=== PATIENT | female | born 1985 | race Caucasian/White ===

== ENCOUNTER 2017-11-04 23:30 | Emergency (ER) | payer MEDICAID ==
[~2017-11-04] VITALS: Ht 157.5 cm; Wt 57.9 kg
[~2017-11-04 23:30] MED LIST: METO10TA3 PO; POTA20TA19 PO; ZOF4T PO
[2017-11-05] MEDS ORDERED: ondansetron 4mg rapidly disintigrating tab PO ONE (01:35)
[2017-11-05] MEDS ORDERED: PSEU120T55 PO (01:37)
[2017-11-05] MEDS ORDERED: ONDA8TAB9 PO (01:37)
[2017-11-05] MEDS ORDERED: AZIT-55 PO (01:37)
[2017-11-05] MEDS ORDERED: GUAI473S11 PO (01:37)
[2017-11-05] MEDS ORDERED: IBUP-1984 PO (01:37)
[2017-11-05 01:54] VITALS: BP 143/89
== END 2017-11-05 01:54 | disposition home or self-care (01) ==
LOC: ER 23:32
DX: J06.9 Acute upper respiratory infection, unspecified (principal); J02.9 Acute pharyngitis, unspecified; G43.909 Migraine, unspecified, not intractable, without status migrainosus; Z91.09 Other allergy status, other than to drugs and biological substances; Z79.899 Other long term (current) drug therapy
CPT/HCPCS: 99283

== ENCOUNTER 2022-08-23 08:38 | Emergency (ER) | payer MEDICAID ==
[~2022-08-23] VITALS: Ht 157.5 cm; Wt 68.0 kg
[~2022-08-23 08:38] MED LIST changes: +ONDA8TAB9 PO; +POTA-207 PO; -POTA20TA19 PO; +PSEU120T55 PO
[2022-08-23] MEDS ORDERED: ketorolac trometh. 30mg/ml inj. IV ONE (09:40)
[2022-08-23] MEDS ORDERED: normal saline 1000ml 1,000 ML IV ONE (09:40)
[2022-08-23] MEDS ORDERED: proCHLORperazine 10 MG/2 ml inj IV ONE (09:40)
[2022-08-23] MEDS ORDERED: diphenhydrAMINE 50 mg/ml inj IV ONE (09:40)
[2022-08-23] MEDS ORDERED: acetaminophen 325mg tablet PO ONE (09:40)
[2022-08-23 10:31] VITALS: BP 142/92
== END 2022-08-23 10:51 | disposition home or self-care (01) ==
LOC: ER 08:38
DX: R51.9 Headache, unspecified (principal); R05.9 Cough, unspecified; R11.0 Nausea
CPT/HCPCS: 96361; 96374; 96375; 99284; J0780; J1200; J1885; J7030

== ENCOUNTER 2023-03-09 21:56 | Emergency (ER) | payer MEDICAID ==
[~2023-03-09] VITALS: Ht 157.5 cm; Wt 71.4 kg
[2023-03-09 22:03] VITALS: BP 135/99
== END 2023-03-09 23:00 | disposition home or self-care (01) ==
LOC: ER 21:56
DX: S70.11XA Contusion of right thigh, initial encounter (principal); G43.909 Migraine, unspecified, not intractable, without status migrainosus; Z91.09 Other allergy status, other than to drugs and biological substances; X58.XXXA Exposure to other specified factors, initial encounter; Y93.89 Activity, other specified; Y92.89 Other specified places as the place of occurrence of the external cause; Y99.8 Other external cause status
CPT/HCPCS: 99282

== ENCOUNTER 2024-06-14 22:03 | Emergency (ER) | payer MEDICAID ==
[~2024-06-14] VITALS: Ht 157.5 cm; Wt 76.8 kg
[2024-06-14 22:06] VITALS: BP 151/109; PULSE 102; RESP 17; O2SAT 96
[2024-06-14 22:33] VITALS: TEMP 98.4
== END 2024-06-14 22:32 | disposition home or self-care (01) ==
LOC: ER 22:03
DX: S82.491A Other fracture of shaft of right fibula, initial encounter for closed fracture (principal); G43.909 Migraine, unspecified, not intractable, without status migrainosus; Z91.09 Other allergy status, other than to drugs and biological substances; Z88.8 Allergy status to other drugs, medicaments and biological substances; Z79.899 Other long term (current) drug therapy; X50.1XXA Overexertion from prolonged static or awkward postures, initial encounter; Y93.89 Activity, other specified; Y92.89 Other specified places as the place of occurrence of the external cause; Y99.8 Other external cause status
CPT/HCPCS: 73610; 99283; L4360